=== PATIENT | male | born 1990 | race Caucasian/White ===

== ENCOUNTER → 2016-11-14 01:38 | Emergency (ER) | payer SELFPAY ==
[~2016-11-14 01:38] MED LIST: Haloperidol INJ IV/IM* 5 MG/ML AMP ONE; LORazepam INJ* 2 MG/ML 1 ML VIAL ONE; diPHENhydraMINE IV* 50 MG/ML 1 ml VIAL (BENADRYL) ONE
[2016-11-14 03:01] LABS: Hematocrit 45 % (42-52); Hemoglobin 15.1 g/dl (14.0-18.0); Mean Corpuscular HGB Conc 34 g/dl (31-36); Mean Corpuscular Hemoglobin 29 pg (27-31); Mean Corpuscular Volume 86 fL (80-94); Mean Platelet Volume 7 um3 (7.4-10.4); Red Blood Count 5.22 10^6/ul (4.0-5.4); Red Cell Distribution Width 13 % (10.5-15); White Blood Count 9.8 10^3/ul (3.5-10.8)
[2016-11-14 03:03] LABS: Urine Bilirubin Negative (Negative); Urine Glucose Negative (Negative); Urine Nitrite Negative (Negative)
[2016-11-14 03:12] LABS: ALT 21 U/L (7-52); AST 35 U/L (13-39); Albumin 4.8 g/dL (3.2-5.2); Alkaline Phosphatase 50 U/L (34-104); Anion Gap 9 mmol/L (2-11); BUN/Creatinine Ratio 22.5 (8-20); Blood Urea Nitrogen 20 mg/dL (6-24); CO2 Carbon Dioxide 22 mmol/L (22-32); Calcium 9.3 mg/dL (8.6-10.3); Chloride 105 mmol/L (101-111); EGFR African American 130.9 (>60); EGFR Non-African American 101.8 (>60); Globulin 2.6 g/dL (2-4); Glucose 93 mg/dL (70-100); Sodium 136 mmol/L (133-145); Total Protein 7.4 g/dL (6.4-8.9)
[2016-11-14 03:13] LABS: Acetaminophen < 15 mcg/mL; Alcohol 224 mg/dL (<10); Salicylate < 2.50 mg/dL (<30)
[2016-11-14 03:16] LABS: Benzodiazepine Urine Screen None Detected (None Detect)
[2016-11-14 03:22] LABS: TSH (Thyroid Stimulating Horm) 1.92 mcIU/mL (0.34-5.60)
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
[2016-11-14 12:25] VITALS: BP 95/57
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
== END ==
LOC: ED 01:38
DX: F10.129 Alcohol abuse with intoxication, unspecified (principal); F17.200 Nicotine dependence, unspecified, uncomplicated; R45.1 Restlessness and agitation; Z59.0 Homelessness
CPT/HCPCS: 36415; 80053; 80307; 80320; 80329; 81003; 84443; 85025; 99285; G0480; J1200; J1630; J2060

== ENCOUNTER 2016-12-03 15:52 | Emergency (ER) | payer SELFPAY ==
[2016-12-03 16:30] LABS: Urine Bilirubin Negative (Negative); Urine Glucose Negative (Negative); Urine Nitrite Negative (Negative)
[2016-12-03 16:44] LABS: Hematocrit 44 % (42-52); Hemoglobin 15.1 g/dl (14.0-18.0); Mean Corpuscular HGB Conc 35 g/dl (31-36); Mean Corpuscular Hemoglobin 30 pg (27-31); Mean Corpuscular Volume 86 fL (80-94); Mean Platelet Volume 7 um3 (7.4-10.4); Red Blood Count 5.09 10^6/ul (4.0-5.4); Red Cell Distribution Width 14 % (10.5-15); White Blood Count 6.8 10^3/ul (3.5-10.8)
[2016-12-03] MEDS ORDERED: Nicotine GUM* 2 MG PO PRN (16:48)
[2016-12-03] MEDS ORDERED: Nicotine GUM* 2 MG ONE (16:53)
[2016-12-03 17:00] LABS: ALT 17 U/L (7-52); AST 24 U/L (13-39); Albumin 4.5 g/dL (3.2-5.2); Alkaline Phosphatase 56 U/L (34-104); Anion Gap 7 mmol/L (2-11); BUN/Creatinine Ratio 11.4 (8-20); Blood Urea Nitrogen 10 mg/dL (6-24); CO2 Carbon Dioxide 25 mmol/L (22-32); Calcium 9.3 mg/dL (8.6-10.3); Chloride 106 mmol/L (101-111); EGFR African American 132.6 (>60); EGFR Non-African American 103.1 (>60); Globulin 2.9 g/dL (2-4); Glucose 84 mg/dL (70-100); Potassium 3.9 mmol/L (3.5-5.0); Sodium 138 mmol/L (133-145); Total Protein 7.4 g/dL (6.4-8.9)
[2016-12-03 17:17] LABS: Acetaminophen < 15 mcg/mL; Alcohol 126 mg/dL (<10); Salicylate < 2.50 mg/dL (<30)
[2016-12-03] MEDS ORDERED: Ibuprofen TAB* 200 MG PO ONE (17:30)
[2016-12-03 17:39] LABS: TSH (Thyroid Stimulating Horm) 0.61 mcIU/mL (0.34-5.60)
--- NOTE | 2016-12-03 18:00 | RAD ---
INDICATION: Chest pain COMPARISON: None TECHNIQUE: PA and lateral views of the chest were obtained. FINDINGS: The heart and mediastinum are normal in size and contour. The lungs are grossly clear. There is no evidence of large pleural effusion. Visualized bones are normal for the patient's age. There is no radiographic evidence of free air beneath the diaphragm IMPRESSION: No radiographic evidence of acute cardiopulmonary disease.
--- NOTE | 2016-12-03 18:32 | ED ---
Marquez Pond Angela, scribed for Ramiro Barr MD on 12/03/16 at 1611 . Psychiatric Complaint - HPI Summary HPI Summary: This pt is a 26 y/o male BIBA on a 9.45 presenting to [facility] for being loud and aggressive behavior at the psychologist's office today. Pt reports he wanted tobacco and coffee this morning and was being loud when someone called the police for this. Pt reports he has been homeless for 5 years now. He denies SI, HI. Pt smokes marijuana, tobacco and drinks coffee and occasional alcohol. PMHx : ADHD. Pt notes he is originally from [place] and quit his job at the age of 20. - History Of Current Complaint Chief Complaint: EDMentalHealth Time Seen by Provider: 12/03/16 16:08 Hx Obtained From: Patient Onset/Duration: Sudden Onset Has Suicidal: Denies: Thoughts, With A Plan Has Homicidal: Denies: Thoughts, With A Plan - Allergies/Home Medications Allergies/Adverse Reactions: Allergies Allergy/AdvReac Type Severity Reaction Status Date / Time No Known Allergies Allergy Verified 12/03/16 16:07 PMH/Surg Hx/FS Hx/Imm Hx Endocrine/Hematology History: Denies: Hx Diabetes Cardiovascular History: Denies: Hx Hypertension Psychiatric History: Reports: Hx Attention Deficit Hyperactivity Disorder Denies: Hx of Violent Episodes Against Others - Immunization History Date of Tetanus Vaccine: Unk Date of Influenza Vaccine: Unk Infectious Disease History: Unable to Obtain/Confirm Infectious Disease History: Denies: Traveled Outside the US in Last 30 Days - Family History Known Family History: Negative: Hypertension - Social History Alcohol Use: Weekly Substance Use Type: Reports: Marijuana Substance Use Comment - Amount & Last Used: friday Smoking Status (MU): Heavy Every Day Tobacco Smoker Review of Systems Negative: Fever, Chills Eyes: Negative ENT: Negative Cardiovascular: Negative Respiratory: Negative Gastrointestinal: Negative Negative: Other - SI, HI All Other Systems Reviewed And Are Negative: Yes Physical Exam Triage Information Reviewed: Yes Vital Signs On Initial Exam: Initial Vitals Temp Pulse Resp BP Pulse Ox 100.3 F 124 20 139/72 98 12/03/16 15:59 12/03/16 15:59 12/03/16 15:59 12/03/16 15:59 12/03/16 15:59 Vital Signs Reviewed: Yes Appearance: Positive: Well-Appearing - poor hygeine Skin: Positive: Warm, Skin Color Reflects Adequate Perfusion, Other - dirty feet and poor hygeine Head/Face: Positive: Normal Head/Face Inspection Eyes: Positive: EOMI, ROXY, Other: - no photophobia ENT: Positive: Normal ENT inspection Neck: Positive: Supple, Nontender. Negative: Nuchal Rigidity Respiratory/Lung Sounds: Positive: Clear to Auscultation, Breath Sounds Present Cardiovascular: Positive: RRR. Negative: Murmur Abdomen Description: Positive: Nontender Musculoskeletal: Positive: Strength/ROM Intact Neurological: Positive: Normal, Sensory/Motor Intact, Alert, Oriented to Person Place, Time, CN Intact II-III Psychiatric: Positive: Normal - [place] Coma Scale Best Eye Response: 4 - Spontaneous Best Motor Response: 6 - Obeys Commands Best Verbal Response: 5 - Oriented Diagnostics - Vital Signs Vital Signs Temp Pulse Resp BP Pulse Ox 12/03/16 15:59 100.3 F 124 20 139/72 98 - Laboratory Lab Results: Lab Results 12/03/16 12/03/16 12/03/16 Range/Units 16:00 16:32 16:32 WBC 6.8 (3.5-10.8) 10^3/ul RBC 5.09 (4.0-5.4) 10^6/ul Hgb 15.1 (14.0-18.0) g/dl Hct 44 (42-52) % MCV 86 (80-94) fL MCH 30 (27-31) pg MCHC 35 (31-36) g/dl RDW 14 (10.5-15) % Plt Count 249 (150-450) 10^3/ul MPV 7 L (7.4-10.4) um3 Neut % (Auto) 65.3 (38-83) % Lymph % (Auto) 24.4 L (25-47) % [place] % (Auto) 7.6 (1-9) % Eos % (Auto) 1.6 (0-6) % Baso % (Auto) 1.1 (0-2) % Absolute Neuts (auto) 4.4 (1.5-7.7) 10^3/ul Absolute Lymphs (auto) 1.7 (1.0-4.8) 10^3/ul Absolute Monos (auto) 0.5 (0-0.8) 10^3/ul Absolute Eos (auto) 0.1 (0-0.6) 10^3/ul Absolute Basos (auto) 0.1 (0-0.2) 10^3/ul Absolute Nucleated RBC 0.01 10^3/ul Nucleated RBC % 0.2 Sodium 138 (133-145) mmol/L Potassium 3.9 (3.5-5.0) mmol/L Chloride 106 (101-111) mmol/L Carbon Dioxide 25 (22-32) mmol/L Anion Gap 7 (2-11) mmol/L BUN 10 (6-24) mg/dL Creatinine 0.88 (0.67-1.17) mg/dL Est GFR ( Amer) 132.6 (>60) Est GFR (Non-Af Amer) 103.1 (>60) BUN/Creatinine Ratio 11.4 (8-20) Glucose 84 (70-100) mg/dL Calcium 9.3 (8.6-10.3) mg/dL Total Bilirubin 0.40 (0.2-1.0) mg/dL AST 24 (13-39) U/L ALT 17 (7-52) U/L Alkaline Phosphatase 56 (34-104) U/L Total Protein 7.4 (6.4-8.9) g/dL Albumin 4.5 (3.2-5.2) g/dL Globulin 2.9 (2-4) g/dL Albumin/Globulin Ratio 1.6 (1-3) TSH Pending Urine Color Straw Urine Appearance Clear Urine pH 7.0 (5-9) Ur Specific [place] 1.003 L (1.010-1.030) Urine Protein Negative (Negative) Urine Ketones Negative (Negative) Urine Blood Negative (Negative) Urine Nitrate Negative (Negative) Urine Bilirubin Negative (Negative) Urine Urobilinogen Negative (Negative) Ur Leukocyte Esterase Negative (Negative) Urine Glucose Negative (Negative) Salicylates < 2.50 (<30) mg/dL Acetaminophen < 15 mcg/mL Serum Alcohol 126 H (<10) mg/dL Result Diagrams: 12/03/16 16:32 12/03/16 16:32 Lab Statement: Any lab studies that have been ordered have been reviewed, and results considered in the medical decision making process. - Radiology Chest XR Xray Interpretation: No Acute Changes - IMPRESSION: No radiographic evidence of acute cardiopulmonary disease. ED physician has reviewed this radiology report and agrees. Radiology Interpretation Completed By: Radiologist Course/Dx - Course Assessment/Plan: Pt is a 26 y/o male BIBA on a 9.45 presenting to [facility] for being loud and aggressive behavior at the psychologist's office. Pt reports he wanted tobacco and coffee this morning and was being loud when someone called the police for this. Pt has been homeless for 5 years. Serum alcohol of 126. Chest XR reveals no radiographic evidence of acute cardiopulmonary disease. - Differential Dx/Clinical Impression Provider Diagnosis: Alcohol intoxication, Aggressive behavior Discharge - Discharge Plan Condition: Good Disposition: OTHER Discharge Disposition Comment: Sign out to Dr Myers with psych eval pending and dispo 1900 Referrals: No Primary Care Phys,NOPCP [Primary Care Provider] - The documentation as recorded by the Marquez feliciano Angela accurately reflects the service I personally performed and the decisions made by me, Ramiro Barr MD.
[2016-12-03 19:27] LABS: Benzodiazepine Urine Screen None Detected (None Detect)
[2016-12-03 20:07] VITALS: BP 123/68
--- NOTE | 2016-12-04 02:05 | ED ---
Brian Pond Alfonso, scribed for Raina Myers MD on 12/03/16 at 2026 . Progress - Progress Note Progress Note: Reevaluation at 2020 He denies any complains at this time. Pt's speech is clear and coherent. Pt is not tremulous, HTN or tachycardic and shows no signs of withdrawal. Lab and imaging results reviewed. Patients case discussed with mental health puncher and Jeffery RN. Per Dr. Peres pt is stable for discharge. - Consult/PCP Time Called: 18:04 Course/Dx - Diagnoses Provider Diagnoses: Alcohol intoxication, Aggressive behavior The documentation as recorded by the Brian feliciano Alfonso accurately reflects the service I personally performed and the decisions made by , Raina Myers MD.
== END 2016-12-03 20:28 ==
LOC: ED 15:52
DX: F10.129 Alcohol abuse with intoxication, unspecified (principal); Y90.6 Blood alcohol level of 120-199 mg/100 ml; F91.8 Other conduct disorders
CPT/HCPCS: 36415; 71020; 80053; 80307; 80320; 80329; 81003; 84443; 85025; 99282; A9270-GY; G0480

== ENCOUNTER 2017-06-18 13:31 | Emergency (ER) | payer OTHER ==
[2017-06-18] MEDS ORDERED: LORazepam INJ* 2 MG/ML 1 ML VIAL IM ONE (14:03)
[2017-06-18] MEDS ORDERED: Haloperidol INJ IV/IM* 5 MG/ML AMP IM ONE (14:03)
[2017-06-18] MEDS ORDERED: diPHENhydraMINE IV* 50 MG/ML 1 ml VIAL (BENADRYL) IM ONE (14:03)
[2017-06-18] MEDS ORDERED: Haloperidol Decanoate* 50 MG/ML AMP ONE (14:25)
[2017-06-18] MEDS ORDERED: diPHENhydraMINE IV* 50 MG/ML 1 ml VIAL (BENADRYL) ONE (14:25)
[2017-06-18] MEDS ORDERED: LORAZEPAM 2 MG/ML ONE (14:25)
[2017-06-18 15:51] LABS: ABS Basophils 0.1 10^3/ul (0-0.2); ABS Eosinophils 0 10^3/ul (0-0.6); ABS Lymphocytes 0.8 10^3/ul (1.0-4.8); ABS Monocytes 0.6 10^3/ul (0-0.8); ABS Neutrophils 9.6 10^3/ul (1.5-7.7); ABS Nucleated RBC 0 10^3/ul; Eosinophil % 0 % (0-6); Hematocrit 42 % (42-52); Hemoglobin 14.6 g/dl (14.0-18.0); Mean Corpuscular HGB Conc 35 g/dl (31-36); Mean Corpuscular Hemoglobin 30 pg (27-31); Mean Corpuscular Volume 86 fL (80-94); Mean Platelet Volume 7.3 um3 (7.4-10.4); Nucleated Red Blood Cells % 0; Platelet Count 222 10^3/ul (150-450); Red Blood Count 4.88 10^6/ul (4.0-5.4); Red Cell Distribution Width 13 % (10.5-15); White Blood Count 11.1 10^3/ul (3.5-10.8)
[2017-06-18 16:08] LABS: EGFR Non-African American 92.2 (>60)
--- NOTE | 2017-06-18 19:32 | ED ---
Curly Pond Gabriel, scribed for Dejan Neville MD on 06/18/17 at 1358 . Psychiatric Complaint - HPI Summary HPI Summary: The patient is a 26 year old male who arrived escorted by police and [facility]. The patient was originally placed in the [facility] but became agitated very quickly. He was escorted to a room where he threatened to leave. A response team was eventually called. The patient was placed in restraints and then medicated. LEVEL 5 CAVEAT: HPI limited by uncooperative patient - History Of Current Complaint Time Seen by Provider: 06/18/17 13:57 Hx Obtained From: Other: - Police, nursing, [place] [facility] Onset/Duration: Still Present Timing: Constant - Allergies/Home Medications Allergies/Adverse Reactions: Allergies Allergy/AdvReac Type Severity Reaction Status Date / Time No Known Allergies Allergy Verified 12/03/16 16:07 Home Medications: Home Medications Unobtainable [Unobtainable] 06/18/17 [History Confirmed 06/18/17] PMH/Surg Hx/FS Hx/Imm Hx Endocrine/Hematology History: Denies: Hx Diabetes Cardiovascular History: Denies: Hx Hypertension Respiratory History: Denies: Other Respiratory Problems/Disorders Psychiatric History: Reports: Hx Attention Deficit Hyperactivity Disorder Denies: Hx Eating Disorder, Hx of Violent Episodes Against Others - Immunization History Date of Tetanus Vaccine: Unk Date of Influenza Vaccine: Unk - Family History Known Family History: Negative: Hypertension - Social History Alcohol Use: Weekly Substance Use Type: Reports: Marijuana Substance Use Comment - Amount & Last Used: friday Smoking Status (MU): Heavy Every Day Tobacco Smoker Review of Systems - ROS Summary Review of Systems Summary: LEVEL 5 CAVEAT: ROS limited by uncooperative patient Negative: Fever Positive: Other - Agitation All Other Systems Reviewed And Are Negative: No Physical Exam - Summary Physical Exam Summary: General: well-appearing, no pain distress Skin: warm, color reflects adequate perfusion, dry Head: normal Eyes: EOMI, ROXY ENT: normal Neck: supple, nontender Respiratory: CTA, breath sounds present Cardiovascular: RRR Abdomen: soft, nontender Bowel: present Musculoskeletal: normal, strength/ROM intact Neurological: sensory/motor intact, A&O x3 Psychiatric: agitated LEVEL 5 CAVEAT: Physical Exam limited by agitated patient. Triage Information Reviewed: Yes Vital Signs On Initial Exam: Initial Vitals Temp Pulse Resp BP Pulse Ox 98 F 92 16 107/60 97 06/18/17 15:08 06/18/17 15:08 06/18/17 15:08 06/18/17 15:08 06/18/17 15:08 Vital Signs Reviewed: Yes Diagnostics - Vital Signs Vital Signs Temp Pulse Resp BP Pulse Ox 06/18/17 19:14 72 16 06/18/17 17:01 98 16 95 06/18/17 16:54 89 9 91/69 96 06/18/17 16:50 0 F 0 0 00/00 0 06/18/17 15:48 88 16 107/60 95 06/18/17 15:08 98 F 92 16 107/60 97 - Laboratory Lab Results: Lab Results 06/18/17 06/18/17 Range/Units 15:05 15:05 WBC 11.1 H (3.5-10.8) 10^3/ul RBC 4.88 (4.0-5.4) 10^6/ul Hgb 14.6 (14.0-18.0) g/dl Hct 42 (42-52) % MCV 86 (80-94) fL MCH 30 (27-31) pg MCHC 35 (31-36) g/dl RDW 13 (10.5-15) % Plt Count 222 (150-450) 10^3/ul MPV 7.3 L (7.4-10.4) um3 Neut % (Auto) 86.8 H (38-83) % Lymph % (Auto) 7.0 L (25-47) % [place] % (Auto) 5.7 (0-7) % Eos % (Auto) 0 (0-6) % Baso % (Auto) 0.5 (0-2) % Absolute Neuts (auto) 9.6 H (1.5-7.7) 10^3/ul Absolute Lymphs (auto) 0.8 L (1.0-4.8) 10^3/ul Absolute Monos (auto) 0.6 (0-0.8) 10^3/ul Absolute Eos (auto) 0 (0-0.6) 10^3/ul Absolute Basos (auto) 0.1 (0-0.2) 10^3/ul Absolute Nucleated RBC 0 10^3/ul Nucleated RBC % 0 Sodium 135 L (139-145) mmol/L Potassium 3.4 L (3.5-5.0) mmol/L Chloride 101 (101-111) mmol/L Carbon Dioxide 23 (22-32) mmol/L Anion Gap 11 (2-11) mmol/L BUN 13 (6-24) mg/dL Creatinine 0.97 (0.67-1.17) mg/dL Est GFR ( Amer) 118.5 (>60) Est GFR (Non-Af Amer) 92.2 (>60) BUN/Creatinine Ratio 13.4 (8-20) Glucose 108 H (70-100) mg/dL Calcium 9.0 (8.6-10.3) mg/dL Total Bilirubin 0.60 (0.2-1.0) mg/dL AST 23 (13-39) U/L ALT 14 (7-52) U/L Alkaline Phosphatase 44 (34-104) U/L Total Protein 6.7 (6.4-8.9) g/dL Albumin 4.4 (3.2-5.2) g/dL Globulin 2.3 (2-4) g/dL Albumin/Globulin Ratio 1.9 (1-3) TSH 0.44 (0.34-5.60) mcIU/mL Salicylates < 2.50 (<30) mg/dL Acetaminophen < 15 mcg/mL Serum Alcohol < 10 (<10) mg/dL Result Diagrams: 1818 15:05 18 15:05 Lab Statement: Any lab studies that have been ordered have been reviewed, and results considered in the medical decision making process. Re-Evaluation - Re-Evaluation First Eval Re-Evaluation Time: 14:04 Change: Worse Comment: The pt is attempting to leave the ED and being violent. He does not want to be seen. Pt will be medically sedated Course/Dx - Course Assessment/Plan: The patient is a 26 year old male brought in by police. He was agitated so he was put in restraints and behaviorally sedated. He is awaiting medical cleareance for mental health evaluation and will be signed out to Dr. Macias at shift change pending medical clearance. - Differential Dx/Clinical Impression Provider Diagnosis: Mental health problem - Critical Care Time Critical Care Time: 30-74 min Discharge - Sign-Out/Discharge Documenting (check all that apply): Sign-Out Patient Signing out patient TO: Geri Macias - Discharge Plan Condition: Stable [place] [place]: No Primary Care Phys,NOPCP [Primary Care Provider] - - Billing Disposition and Condition Condition: STABLE [place] [place] The documentation as recorded by the Curly feliciano Gabriel accurately reflects the service I personally performed and the decisions made by me, Djean Neville MD.
--- NOTE | 2017-06-19 00:37 | ED ---
Yeny Podn Thomas, scribed for Geri Macias MD on 06/19/17 at 0008 . Progress - Progress Note Progress Note: The patient is a 26 year old male who is a sign out from Dr. Neville pending mental health evaluation. Course/Dx - Course Course Of Treatment: The patient was seen by the evaluators. The evaluators tell me that the patient is homeless and has no place to go. He will be held tonight for referrals and social work in the morning. The mental health evaluators will facilitate the discharge. - Diagnoses Provider Diagnoses: Adjustment disorder, Homeless Discharge - Sign-Out/Discharge Documenting (check all that apply): Discharge, Receiving Sign-Out Receiving patient FROM: Dejan Neville - Discharge Plan Condition: Stable Disposition: HOME Referrals: No Primary Care Phys,NOPCP [Primary Care Provider] - The documentation as recorded by the Yeny feliciano Thomas accurately reflects the service I personally performed and the decisions made by me, Geri Macias MD.
[2017-06-19] MEDS ORDERED: LORazepam TAB(*) 1 MG PO ONE (05:33)
[2017-06-19] MEDS ORDERED: Mouth Piece, Nicotine* 1 EACH CARTRIDGE INH PRN (06:37)
[2017-06-19] MEDS ORDERED: Nicotine Inhaler* 10 MG AMP INH PRN (06:37)
[2017-06-19 09:10] VITALS: BP 000/00
--- NOTE | 2017-06-19 19:49 | ED ---
Yeny Pond Thomas, scribed for Geri Macias MD on 06/19/17 at 0705 . Progress - Progress Note Progress Note: The patient was going to be discharged by the evaluators in the morning, but before this could happen, the patient became agitated, hostile, and was threatening to leave. The patient will have another mental health evaluation. The patient will be signed out to Dr. Neville at shift change pending mental health evaluation. Course/Dx - Diagnoses Provider Diagnoses: Adjustment disorder, Homeless Discharge - Sign-Out/Discharge Documenting (check all that apply): Sign-Out Patient Signing out patient TO: Dejan Neville - Discharge Plan Referrals: No Primary Care Phys,NOPCP [Primary Care Provider] - The documentation as recorded by the Yeny feliciano Thomas accurately reflects the service I personally performed and the decisions made by me, Geri Macias MD.
== END 2017-06-19 08:10 | disposition home or self-care (01) ==
LOC: ED 13:31
DX: F43.20 Adjustment disorder, unspecified (principal); Z59.0 Homelessness; F17.210 Nicotine dependence, cigarettes, uncomplicated
CPT/HCPCS: 36415; 80053; 80320; 80329; 84443; 85025; 96372; 99285; A9270-GY; G0480; J1200; J1631

== ENCOUNTER 2017-06-19 09:06 | Emergency (ER) | payer OTHER ==
--- NOTE | 2017-06-19 09:16 | ED ---
Progress - Progress Note Progress Note: 06/19/17 AM. THE PATIENT ELOPED FROM THE ED. THE STATE TROOPERS WERE CONTACTED. THEY TOOK THE 941 AND LEFT TO FIND THE PATIENT. Course/Dx - Diagnoses Provider Diagnoses: Mental health problem Discharge - Sign-Out/Discharge Documenting (check all that apply): Discharge - THE PATIENT ELOPED - Discharge Plan Condition: Good Disposition: LAW ENFORCEMENT/COURT Referrals: No Primary Care Phys,NOPCP [Primary Care Provider] - - Billing Disposition and Condition Condition: GOOD Disposition: LAW
[2017-06-19 10:32] VITALS: BP 120/67
--- NOTE | 2017-06-19 16:12 | ED ---
Brett Pond Jennifer, scribed for Dejan Neville MD on 06/19/17 at 0922 . Psychiatric Complaint - HPI Summary HPI Summary: The patient is a 26 year old male who was brought back to the ED by police after running away this morning. The patient arrived in the ED yesterday and was going to be discharged this morning but became agitated and hostile. Around 08:00 this morning, the patient ran away from the ED. The police retrieved the patient and brought him back to the ED. He is now awake, alert, and appropriate. The patient denies dizziness, chest pain, abdominal pain. He complains of cold feet. - History Of Current Complaint Chief Complaint: EDMentalHealth Time Seen by Provider: 06/19/17 09:10 Hx Obtained From: Other: - Police Onset/Duration: Sudden Onset Timing: Constant Severity Initially: Moderate Severity Currently: Mild Has Suicidal: Denies: Thoughts, With A Plan Has Homicidal: Denies: Thoughts, With A Plan - Allergies/Home Medications Allergies/Adverse Reactions: Allergies Allergy/AdvReac Type Severity Reaction Status Date / Time No Known Allergies Allergy Verified 12/03/16 16:07 Home Medications: Home Medications NK [No Home Medications Reported] 06/19/17 [History Confirmed 06/19/17] PMH/Surg Hx/FS Hx/Imm Hx Endocrine/Hematology History: Denies: Hx Diabetes Cardiovascular History: Denies: Hx Hypertension Respiratory History: Denies: Other Respiratory Problems/Disorders Psychiatric History: Reports: Hx Attention Deficit Hyperactivity Disorder Denies: Hx Eating Disorder, Hx of Violent Episodes Against Others - Immunization History Date of Tetanus Vaccine: Unk Date of Influenza Vaccine: Unk Infectious Disease History: No Infectious Disease History: Denies: Traveled Outside the [place] in Last 30 Days - Family History Known Family History: Negative: Hypertension - Social History Alcohol Use: Weekly Substance Use Type: Reports: Marijuana Substance Use Comment - Amount & Last Used: friday Smoking Status (MU): Heavy Every Day Tobacco Smoker Review of Systems Negative: Chest Pain Negative: Abdominal Pain Positive: Other - Erythematous feet Neurological: Negative - Dizzy All Other Systems Reviewed And Are Negative: Yes Physical Exam - Summary Physical Exam Summary: General: well-appearing, no pain distress Skin: warm, color reflects adequate perfusion, dry Head: normal Eyes: EOMI, ROXY ENT: normal Neck: supple, nontender Respiratory: CTA, breath sounds present Cardiovascular: RRR Abdomen: soft, nontender Bowel: present Musculoskeletal: normal, strength/ROM intact. Erythematous feet. Neurological: normal, sensory/motor intact, A&O x3. Awake, alert, appropriate, cooperative Psychological: affect/mood appropriate Triage Information Reviewed: Yes Vital Signs On Initial Exam: Initial Vitals Temp Pulse Resp BP Pulse Ox 98.4 F 105 20 114/65 98 06/19/17 09:12 06/19/17 09:12 06/19/17 09:12 06/19/17 09:12 06/19/17 09:12 Vital Signs Reviewed: Yes Diagnostics - Vital Signs Vital Signs Temp Pulse Resp BP Pulse Ox 06/19/17 09:12 98.4 F 105 20 114/65 98 - Laboratory Lab Statement: Any lab studies that have been ordered have been reviewed, and results considered in the medical decision making process. Course/Dx - Course Course Of Treatment: DISCHARGE HOME STABLE AFTER MHE - Differential Dx/Clinical Impression Provider Diagnosis: Mental health problem Discharge - Sign-Out/Discharge Documenting (check all that apply): Discharge - Discharge Plan Condition: Stable Disposition: HOME Referrals: No Primary Care Phys,NOPCP [Primary Care Provider] - Additional Instructions: Follow up with your primary care physician in three days. Return to the emergency department for any new or worsening symptoms. - Billing Disposition and Condition Condition: STABLE Disposition: HOME The documentation as recorded by the Brett feliciano Jennifer accurately reflects the service I personally performed and the decisions made by me, Dejan Neville MD.
== END 2017-06-19 10:31 | disposition home or self-care (01) ==
LOC: ED 09:06
DX: I10 Essential (primary) hypertension (principal); K57.92 Diverticulitis of intestine, part unspecified, without perforation or abscess without bleeding; R10.32 Left lower quadrant pain; R11.0 Nausea
CPT/HCPCS: 96360; 99282

== ENCOUNTER 2018-06-29 17:33 | Emergency (ER) | payer OTHER ==
--- NOTE | 2018-06-29 18:11 | ED ---
Lower Extremity - HPI Summary HPI Summary: Patient is a 27 y/o M presenting to ED with complaints of left foot pain. He states that he had rolled his left ankle after he had stepped off of the side of a curb. Patient reports that he can bear weight for a small amount of time. On triage, pain is rated 6/10, walking is noted to aggravate Sx, ice is noted to alleviate Sx. Home medications and allergies are reviewed. - History of Current Complaint Chief Complaint: EDExtremityLower Stated Complaint: I ROLLED MY ANKLE PER PT Time Seen by Provider: 06/29/18 17:59 Hx Obtained From: Patient Mechanism Of Injury: Other - rolled ankle Onset of Pain: Prior to Arrival Onset/Duration: Still Present Severity Currently: Moderate - 6/10 Pain Intensity: 6 Pain Scale Used: 0-10 Numeric - 6/10 Timing: Constant Location: Is Discrete @ - left foot Associated Signs And Symptoms: Positive: Other - LEFT FOOT PAIN Aggravating Factor(s): Movement Alleviating Factor(s): Ice - Allergies/Home Medications Allergies/Adverse Reactions: Allergies Allergy/AdvReac Type Severity Reaction Status Date / Time No Known Allergies Allergy Verified 06/29/18 17:36 PMH/Surg Hx/FS Hx/Imm Hx Endocrine/Hematology History: Denies: Hx Diabetes Cardiovascular History: Denies: Hx Hypertension Respiratory History: Denies: Other Respiratory Problems/Disorders Psychiatric History: Reports: Hx Attention Deficit Hyperactivity Disorder Denies: Hx Eating Disorder, Hx of Violent Episodes Against Others - Immunization History Date of Tetanus Vaccine: Unk Date of Influenza Vaccine: Unk Infectious Disease History: No Infectious Disease History: Denies: Traveled Outside the [place] in Last 30 Days - Family History Known Family History: Negative: Hypertension - Social History Alcohol Use: Weekly Substance Use Type: Reports: Marijuana Smoking Status (MU): Heavy Every Day Tobacco Smoker Review of Systems Negative: Fever Musculoskeletal: Other - POSITIVE - LEFT FOOT PAIN All Other Systems Reviewed And Are Negative: Yes Physical Exam - Summary Physical Exam Summary: VITAL SIGNS: Reviewed. GENERAL: Patient is a well-developed and nourished male who is lying comfortable in the stretcher. Patient is not in any acute respiratory distress. HEAD AND FACE: No signs of trauma. No ecchymosis, hematomas or skull depressions. No sinus tenderness. EYES: PERRLA, EOMI x 2, No injected conjunctiva, no nystagmus. EARS: Hearing grossly intact. Ear canals and tympanic membranes are within normal limits. MOUTH: Oropharynx within normal limits. NECK: Supple, trachea is midline, no adenopathy, no JVD, no carotid bruit, no c- spine tenderness, neck with full ROM. CHEST: Symmetric, no tenderness at palpation LUNGS: Clear to auscultation bilaterally. No wheezing or crackles. CVS: Regular rate and rhythm, S1 and S2 present, no murmurs or gallops appreciated. ABDOMEN: Soft, non-tender. No signs of distention. No rebound no guarding, and no masses palpated. Bowel sounds are normal. EXTREMITIES: FROM in all major joints, no edema, no cyanosis or clubbing. Swelling of left lateral aspect of left foot, tenderness on palpation, no deformity, patient is neurovascularlly intact. NEURO: Alert and oriented x 3. No acute neurological deficits. Speech is normal and follows commands. SKIN: Dry and warm Triage Information Reviewed: Yes Vital Signs On Initial Exam: Initial Vitals Temp Pulse Resp BP Pulse Ox 98.4 F 105 18 139/74 97 06/29/18 17:34 06/29/18 17:34 06/29/18 17:34 06/29/18 17:34 06/29/18 17:34 Vital Signs Reviewed: Yes Diagnostics - Vital Signs Vital Signs Temp Pulse Resp BP Pulse Ox 06/29/18 17:34 98.4 F 105 18 139/74 97 - Laboratory Lab Statement: Any lab studies that have been ordered have been reviewed, and results considered in the medical decision making process. - Radiology LEFT FOOT X-RAY Radiology Interpretation Completed By: ED Physician Summary of Radiographic Findings: X-RAY SHOWED PROXIMAL 5TH METATARSAL FRACTURE , PENDING OFFICIAL REPORT. Lower Extremity Course/Dx - Course Assessment/Plan: Patient has a fifth proximal metatarsal fracture. This was reviewed with the patient. The patient was placed in the posterior splint, given crutches for nonweightbearing status. The patient will follow-up with orthopedics in the next couple days. Patient will be taking ibuprofen or Tylenol for the pain. The patient understands all his questions were answered and is no further concerns. - Diagnoses Provider Diagnoses: Fracture of fifth metatarsal bone, Fracture of fifth metatarsal bone of left foot Discharge - Sign-Out/Discharge Documenting (check all that apply): Patient Departure - discharge Patient Received Moderate/Deep Sedation with Procedure: No - Discharge Plan Condition: Stable Disposition: HOME Patient Education Materials: Foot Fracture in Adults (ED) Referrals: Care [facility] [Outside] - 3 Days Brandyn Kessler MD [Medical Doctor] - 3 Days Additional Instructions: RETURN TO ED FOR ANY NEW OR WORSENING SYMPTOMS. FOLLOW UP WITH YOUR PRIMARY CARE PHYSICIAN AND ORTHOPEDICS WITHIN THREE DAYS - Billing Disposition and Condition Condition: STABLE Disposition: Home - Attestation Statements Document Initiated by Scribe: Yes Documenting Scribe: PEPPER ESPARZA Provider For Whom Lorenaibe is Documenting (Include Credential): WINTER HASSAN MD Scribe Attestation: IPEPPER, scribed for WINTER HASSAN MD on 06/29/18 at 2116. Scribe Documentation Reviewed: Yes Provider Attestation: The documentation as recorded by the PEPPER feliciano accurately reflects the service I personally performed and the decisions made by me, WINTER HASASN MD Status of Scribe Document: Viewed
[2018-06-29 20:02] VITALS: BP 133/70
== END 2018-06-29 19:45 | disposition home or self-care (01) ==
LOC: ED 17:33
DX: S92.352A Displaced fracture of fifth metatarsal bone, left foot, initial encounter for closed fracture (principal); X50.1XXA Overexertion from prolonged static or awkward postures, initial encounter; Y93.01 Activity, walking, marching and hiking; F90.9 Attention-deficit hyperactivity disorder, unspecified type; F17.210 Nicotine dependence, cigarettes, uncomplicated
CPT/HCPCS: 99282